=== PATIENT | male | born 1960 | race Caucasian/White ===

== ENCOUNTER 2023-10-01 19:57 | Emergency (ER) | payer OTHER, SELFPAY ==
[2023-10-01 20:00] VITALS: BP 172/97; BMI 24.4
[2023-10-01] MEDS: ZOFRAN 4 MG IV (20:16)
[2023-10-01] MEDS: ATIVAN 0.5 MG IV (20:16)
[2023-10-01] MEDS: DILAUDID 1 MG IV (20:16)
[2023-10-01 20:20] LABS: % Basophils 0.8 % (0-2); % Eosinophils 2.5 % (0-6); % Immature Granulocytes 0.4 % (0-0.5); % Lymphocytes 25.6 % (20.5-51.1); % Monocytes 8.4 % (1.7-9.3); % Neutrophils 62.3 % (42.2-75.2); Absolute Basophils 0.1 10^3/uL (0-0.2); Absolute Eosinophils 0.3 10^3/uL (0-0.7); Absolute Immature Granulocytes 0.1 10^3/uL (0-0.05); Absolute Neutrophils 7.2 10^3/uL (1.4-6.5); Hematocrit 44.8 % (39.0-52.0); Hemoglobin 15.9 g/dL (13.0-18.0); Mean Corp Hgb Conc. 35.5 g/dL (33.0-37.0); Mean Corpuscular Hgb 31.4 pg (27.0-31.0); Mean Corpuscular Volume 88.4 fL (80.0-94.0); Mean Platelet Volume 8.5 fL (7.4-10.4); Nucleated Red Blood Cells % 0 % (-); Platelet Count 331 10^3/uL (130-400); Red Blood Cell Count 5.07 10^6/uL (4.70-6.10); White Blood Cell Count 11.6 10^3/uL (4.8-10.8)
[2023-10-01 20:37] LABS: ALT (SGPT) 23 U/L (0-50); AST (SGOT) 29 U/L (17-59); Albumin 4.7 g/dl (3.5-5.0); Alkaline Phosphatase 114 U/L (38-126); Blood Urea Nitrogen 18 mg/dl (9-20); Calcium 9.4 mg/dl (8.4-10.2); Carbon Dioxide 25 mmol/L (22-30); Chloride 102 mmol/L (98-107); Estimated Creatinine Clearance > 125 ml/min; Glucose 157 mg/dl (70-99); Potassium 4.3 mmol/L (3.5-5.1); Sodium 135 mmol/L (135-145); Total Bilirubin 0.5 mg/dl (0.2-1.3); Total Protein 7.7 g/dl (6.3-8.2); eGFR > 60.00
[2023-10-01 20:38] LABS: Alcohol None Detected
[2023-10-01 21:17] VITALS: BP 140/87
[2023-10-01 22:00] VITALS: BP 127/82
[2023-10-01 22:28] VITALS: BP 145/92
[2023-10-01 23:00] VITALS: BP 121/88
[2023-10-02] VITALS (9 sets, daily range): BP systolic 128–151; BP diastolic 71–95
--- NOTE | 2023-10-02 01:18 | ED.GENMED ---
History of Present Illness
General
Chief Complaint: Musculo-Skeletal Complaint
Source: patient, spouse and family
Exam Limitations: none
Time Seen by Provider: 10/01/23 20:10
Nursing documentation reviewed up to this point in time: agreed with
Travel History
Have you had any contact with someone who has COVID-19?: No
Do you have any symptoms of coronavirus? Fever > 100 degrees, chills, cough, shortness of breath, sore throat, loss of taste or smell, muscle aches, or headache?: No
History of Present Illness
History of Present Illness:
Patient is a 63-year-old male who presents to the emergency department complaining of right sided chest pain with spasms that started tonight. Patient's been having pain ever since he fell 3 times a couple days ago. Patient denies shortness of
breath or abdominal pain. Patient denies any head injury. Patient denies any previous history of similar episodes. Patient was initially treated for pain as he appeared to be in significant distress. At that point his and brother arrived
and gave a history that the patient has been using methamphetamine. Patient does smoke marijuana daily. Patient's was unaware of the methamphetamine. Patient's brother was suspicious. Patient confessed to them while in the emergency
department. Patient denies fever or chills or GI symptoms. Patient denies any extremity pain or injury.
Past History
Past History
ED Past Medical History: NIDDM and Other (Restless leg syndrome)
Social History
Tobacco: Former smoker
Drug: Marijuana and Other (Methamphetamine)
Personal:
Review of Systems
Review of Systems
All Other Systems: ROS reviewed and negative except as documented in HPI and ROS
Constitutional: Denies fever or chills
EENT: Reports no symptoms
Respiratory: Denies trouble breathing
Cardiac: Reports chest pain (Spasms on the right); Denies diaphoresis, palpitations or syncope
ABD/GI: Reports no symptoms
: Reports no symptoms
Musculoskeletal: Reports other (Right rib pain); Denies neck pain or back pain
Skin: Reports no symptoms
Neurological: Reports no symptoms
Hematologic/Lymphatic: Reports no symptoms
Phy Exam
Physical Exam
Physical Exam:
Physical Exam
General: significant distress, alert and appropriate, well nourished, well hydrated
HENT: Normocephalic and atraumatic, supple with no tracheal deviation or contusion
Eyes: Clear sclera, conjuctiva without injection
Heart: Regular rhythm and rate. No S3, S4. No murmur. No NVD
Lungs: No respiratory distress, no stridor, lung sounds clear and equal bilaterally, chest wall symmetrical and tenderness in the right lateral mid to lower ribs without crepitus, deformity or subcutaneous emphysema
Abdomen: Soft, nontender, no organomegaly, BS good
Neuro: Alert and oriented x 3, CN II - XII intact, no motor focality
Skin: no wounds
Psychiatric: well kept. interactive and cooperative
Extremities: No edema, cyanosis, tenderness, Good and equal peripheral pulses.
Musculoskeletal: No cervical, thoracic or lumbar spine tenderness
Scores
Heart Failure Risk
Heart Failure Risk Score: Not Applicable
Heart Score for Chest Pain Patients
STEMI patient?: Not applicable
Withdrawal Assessment of Alcohol
Withdrawal Assessment Completed?: Not applicable
Course
Orders/Labs/Results
Orders:
Orders
10/01/23 20:10
Electrocardiogram (*1) Urgent
Reason for Study: Chest Pain
EKG- Treatment ONCE
Ribs, Right 3 View W/PA Chest [CR Ribs-right 3 Vw W/pa Chest*] Urgent
Comment:
Reason For Exam: fall pain right side
10/01/23 20:11
HYDROmorphone [Dilaudid] 1 mg IV NOW STA
Lorazepam [Ativan] 0.5 mg IV NOW STA
Ondansetron Injectable [Zofran] 4 mg IV NOW STA
10/01/23 20:13
Alcohol Urgent
Complete Blood Count/With Diff Urgent
Comprehensive Metabolic Panel Urgent
Abnormal Lab Results
10/01/23
20:13
WBC 11.6 H 10^3/uL
(4.8-10.8)
MCH 31.4 H pg
(27.0-31.0)
Abs Immat Gran (auto) 0.1 H 10^3/uL
(0-0.05)
Absolute Neuts (auto) 7.2 H 10^3/uL
(1.4-6.5)
Absolute Monos (auto) 1.0 H 10^3/uL
(0.1-0.6)
Creatinine 0.6 L mg/dL
(0.7-1.3)
Glucose 157 H mg/dl
(70-99)
10/01/23 20:13
10/01/23 20:13
Vital Signs
Initial and Last Documented VS:
Initial Vital Signs
Temp Pulse Resp BP Pulse Ox
98.1 F 98 20 172/97 94
10/01/23 20:00 10/01/23 20:00 10/01/23 20:00 10/01/23 20:00 10/01/23 20:00
Last Documented Vital Signs
Temp Pulse Resp BP Pulse Ox
98.1 F 94 18 139/95 94
10/01/23 20:00 10/02/23 08:00 10/02/23 08:00 10/02/23 08:00 10/02/23 00:15
*Radiology
Radiology exam reviewed: radiology read reviewed (Rib and chest are unremarkable)
*Pulse Oximetry
Patient hypoxic: no
*EKG
Interpreted by ED Provider?: Yes
EKG Intrepretation Date: 10/02/23
EKG Intrepretation Time: 01:22
Interpretation: normal
Comparison EKG: no changes
Heart Rate: 99
Rate: normal
Rhythm: sinus
[place]: normal axis
Interval: normal interval
QRS Pattern: normal QRS
Ischemia: no ischemia
*Trauma Program Manager Interpretation
Rate: normal
Interpretation: normal
Heart Rate: 95
Rhythm: sinus
*Critical Care Note
Total Time (30-74mins, 75-104mins- exclusive of procedures): Not Applicable
Update Note
Update Note:
Spoke extensively with the patient's and brother while the patient slept. Will keep the patient overnight and discuss his illicit drug use when he awakens with referral to [facility]. Patient's will pick him up in the morning if appropriate.
I spoke with [facility] and they will see the patient in the morning. Patient is sleeping at this time.
ED Attending Note
-
Portions of this chart may have been created with voice recognition software.� Occasional wrong word or��sound alike� substitutions may have occurred due to the inherent limitations of voice recognition software.
Discharge Plan
Departure
Patient Disposition: Home (Routine Discharge)
Date of Disposition: 10/02/23
Time of Disposition: 08:14
Patient with high blood pressure during this ER visit?: Yes
Condition: Fair
Covid-19: Not Applicable
Discharge Problem:
Chest wall contusion, Methamphetamine use
Instructions: Blunt Chest Trauma (DC), Substance Use Disorder ED, BLOOD PRESSURE
Prescriptions:
No Action
ibuprofen [Motrin IB] 200 MG capsule
400 mg PO Q6HPRN PRN (Reason: pain)
sertraline 50 MG tablet
100 mg PO QPM
lisinopril 2.5 MG tablet
2.5 mg PO QPM
pramipexole 1.5 MG tablet
1.5 mg PO BID
rosuvastatin 20 MG tablet
20 mg PO QPM
empagliflozin [Jardiance] 25 MG tablet
25 mg PO QPM
lorazepam [Ativan] 1 mg tablet
1 mg PO BID PRN (Reason: agitation) Qty: 10 0RF
gabapentin 300 mg capsule
300 mg PO HS Qty: 14 0RF
Referrals:
Cecilia Catalan MD [Family Provider] - Follow up in 5-7 days
Activity Restrictions/Additional Instructions:
Follow instructions by [facility]. Acetaminophen 1000 mg or ibuprofen 400 mg every 6 hours for pain. Make sure to do deep breathing a few times a day.
Interventions
Interventions:
*Risk Screen - Suicide Last Done: 10/01/23 20:00
*General Assessment Last Done: 10/01/23 20:00
*Neglect/Abuse Screening Last Done: 10/01/23 20:00
ED- Fall Risk Assessment Last Done: 10/01/23 20:07
*ED COVID-19 Vaccine History Last Done: 10/01/23 20:00
*Nursing Disposition Last Done: 10/02/23 09:12
ED-Musculoskeletal Assessment Last Done: 10/01/23 20:07
Discharge Date and Time
Discharge Date/Time: 10/02/23 09:14
== END 2023-10-02 09:14 | disposition home or self-care (01) ==
LOC: EMR 19:57
PROVIDERS: EMERGENCY PHYSICIAN Emergency Medicine; FAMILY PHYSICIAN Internal Medicine
DX: S20.219A Contusion of unspecified front wall of thorax, initial encounter (principal); W19.XXXA Unspecified fall, initial encounter; F15.90 Other stimulant use, unspecified, uncomplicated; Z87.891 Personal history of nicotine dependence; R03.0 Elevated blood-pressure reading, without diagnosis of hypertension
CPT/HCPCS: 99285; 96374; 96375 ×2; 71101; 80053; 82077; 85025; 93005

== ENCOUNTER 2024-09-11 08:13 | Inpatient (IN) | payer OTHER, SELFPAY ==
[2024-09-09] VITALS (8 sets, daily range): BP systolic 127–158; BP diastolic 65–84; BMI 29.2
--- NOTE | 2024-09-09 02:16 | ED.GENMED ---
History of Present Illness
General
Chief Complaint: Skin Problem
Source: patient
Exam Limitations: none
Time Seen by Provider: 09/09/24 02:08
Nursing documentation reviewed up to this point in time: agreed with
History of Present Illness
History of Present Illness:
Patient with history of diabetes, presents to ED secondary to painful left foot with swelling over the past 2 days. Patient states that he noted 'black dot' on the bottom of his foot, with pain initially. Denies previous history of similar
symptoms. Denies injury. Denies fever or chills. Denies nausea or vomiting. Of note, patient does report drinking alcohol daily, including last night.
Past History
Past History
ED Past Medical History: NIDDM and Other (Restless leg syndrome)
Social History
Tobacco: Former smoker
Drug: Marijuana and Other (Methamphetamine)
Personal:
Review of Systems
Review of Systems
Allergies reviewed?: Yes
All Other Systems: ROS reviewed and negative except as documented in HPI and ROS
Constitutional: Reports no symptoms; Denies fever or chills
Musculoskeletal: Reports other (Foot pain with swelling)
Skin: Reports other (Foot swelling)
Neurological: Reports no symptoms
Phy Exam
Physical Exam
Physical Exam:
Physical Exam
General: no apparent distress, not acutely ill. afebrile.
Head: nc/at. eomi
Neuro: alert and oriented x 3. no focal neurological deficits
Skin: left foot: an open linear lesion over plantar surface base of 4th/5th metatarsal, along with lateral ecchymosis/swelling/tenderness to palpation.
Psychiatric: well kept. interactive and cooperative
Extremities: no edema. no calf tenderness.
Course
Orders/Labs/Results
Orders:
Orders
09/09/24 02:14
CR Foot - Left Min 3 Views Urgent
Comment:
Reason For Exam: left lateral/plantar wound with swelling/ecchymosi
09/09/24 02:42
Piperacillin/Tazo 3.375 Gram [Zosyn] 3.375 gram in 50 ml IV NOW
09/09/24 02:48
Alcohol Urgent
Basic Metabolic Panel Urgent
Complete Blood Count/With Diff Urgent
Magnesium Urgent
09/09/24 03:23
Blood Culture Q30M
ABEBA Source: Blood/Venous
Specimen Description:
Wound Culture [Wound/Abscess/Other Culture] Urgent
ABEBA Source: Foot
Specimen Description: Left
Date Specimen was Collected: 09/09/24
Time Specimen was Collected: 03:20
09/09/24 03:37
Blood Culture Q30M
ABEBA Source: Blood/Venous
Specimen Description:
09/09/24 03:41
Admit/Transfer Patient As Directed
Co-Sign Provider:
Level of Care: Observation services
Assign to:: Medical/Surgical
Physician / Group: hospitalist
Diagnosis: left foot abscess/cellulitis
Code Status As Directed
Resuscitation Status: Full Code
PRN Pain Medication Management As Directed
May give lesser potent ordered pain med per pt: Yes
preference::
Protocol:: Medication orders for pain may be administered in a
manner that supports deferring to patient preference
when the pt is:
- Requesting an ordered lesser potent pain medication.
Least to most potent pain medications are defined
as: acetaminophen < NSAID < tramadol < opioids
(morphine, oxycodone, hydromorphone).
- Requesting a lesser dose of the same medication IF
ORDERED.
- Requesting a less intrusive route of administration
if both routes are prescribed by the provider (PO <
IV).
09/09/24 04:02
Vancomycin [Vancocin] 2,000 mg 0.9% Sodium Chloride 500 ml [Nss] 500 ml IV NOW
09/09/24 04:56
Acetaminophen [Tylenol] 650 mg PO Q4HPRN PRN
Bisacodyl [Dulcolax] 10 mg RECTAL [id number] PRN
Docusate W/Senna [Senokot-S] 1 tablet PO BIDPRN PRN
Ketorolac [Toradol] 10 mg IV Q6HPRN PRN
Ondansetron Injectable [Zofran] 4 mg IV Q6HPRN PRN
Polyethylene Glycol Powder [Miralax] 17 grams PO DAILYPRN PRN
09/09/24 04:56
Consult Notification Routine
Specialty to Notify: Infectious Disease
Date consulting provider notified: 09/09/24
Time consulting provider notified: 11:14
Notified:: Service
Consult Notification Routine
Specialty to Notify: Podiatry
Date consulting provider notified: 09/09/24
Time consulting provider notified: 09:00
Notified:: Service
INFECTIOUS DISEASE CONSULT Routine
Consulting Provider: Mel Umana
Was physician already notified: No
Reason for consult: diabetic foot abscess w/ foreign body and cellulitis
PODIATRY CONSULT Routine
Consulting Provider: Kristian Chowdhury
Was physician already notified: No
Reason for consult: diabetic foot infection/abscess/cellulitis. S/P removal foreign body
Activity As Directed
Activity Level: With Assistance
Bedside Glucose Monitoring As Directed
Frequency: AC&HS
Vital Signs As Directed
Frequency: Per unit guidelines
DX Deep Vein Thrombosis Video Routine
09/09/24 04:59
Basic Metabolic Panel IN AM
Complete Blood Count/No Diff IN AM
ESR [Erythrocyte Sed Rate] IN AM
Hemoglobin A1c [Glycohemoglobin (HgbA1c)] IN AM
09/09/24 Breakfast
1800 calorie (15 carb) Diabetic
At Your Request: Full Participation
Does patient need a safe tray?: No
09/09/24 07:30
Insulin Aspart Corrective Low [Novolog Flexpen-Low Resistance] See Protocol SC AC
09/09/24 08:00
Dapagliflozin [Farxiga] 5 mg PO DAILY
Pramipexole [Mirapex, Generic] 1.5 mg PO BID
09/09/24 09:00
Piperacillin/Tazo 3.375 Gram [Zosyn] 3.375 gram in 50 ml IV Q6H
09/09/24 18:00
Enoxaparin Sodium [Lovenox] 40 mg SC QPM
Abnormal Lab Results
09/09/24
02:48
WBC 14.6 H 10^3/uL
(4.8-10.8)
RBC 4.50 L 10^6/uL
(4.70-6.10)
MCH 31.1 H pg
(27.0-31.0)
Abs Immat Gran (auto) 0.1 H 10^3/uL
(0-0.05)
Absolute Neuts (auto) 11.6 H 10^3/uL
(1.4-6.5)
Absolute Monos (auto) 1.4 H 10^3/uL
(0.1-0.6)
Neutrophils % 79.3 H %
(42.2-75.2)
Lymphocytes % 9.7 L %
(20.5-51.1)
Monocytes % 9.5 H %
(1.7-9.3)
Creatinine 0.5 L mg/dL
(0.7-1.3)
Glucose 172 H mg/dl
(70-99)
09/09/24 02:48
09/09/24 02:48
Vital Signs
Initial and Last Documented VS:
Initial Vital Signs
Temp Pulse Resp BP Pulse Ox
98.2 F 99 18 127/80 98
09/09/24 00:32 09/09/24 00:32 09/09/24 00:32 09/09/24 00:32 09/09/24 00:32
Last Documented Vital Signs
Temp Pulse Resp BP Pulse Ox
98.2 F 84 18 154/65 98
09/09/24 00:32 09/09/24 08:00 09/09/24 08:00 09/09/24 14:00 09/09/24 14:00
Procedures
Foreign Body Removal-Skin
Wound explored and foreign body removed?: Yes
Anesthesia: 1%lidocaine w/epinephrine
Foreign body removed using: forceps
Foreign body removed: completely (Plantar surface of left foot)
MDM/Problems Addressed
MDM/Problems Addressed:
Foreign body removed with use of forceps, with soft drainage of pus. In light of patient's immunocompromise state along with cellulitic changes, patient will be admitted for IV antibiotics.
*Critical Care Note
Total Time (30-74mins, 75-104mins- exclusive of procedures): Not Applicable
ED Attending Note
-
Portions of this chart may have been created with voice recognition software.� Occasional wrong word or��sound alike� substitutions may have occurred due to the inherent limitations of voice recognition software.
Discharge Plan
Departure
Patient Disposition: Admit
Date of Disposition: 09/09/24
Time of Disposition: 03:11
Admit to: Med/Surg
Presentation/result/management discussed w/ accepting MD/DO: Hospitalist
Discharge Problem:
Cellulitis and abscess of foot, foreign body removal
Interventions
Interventions:
*Risk Screen - Suicide Last Done: 09/09/24 00:32
*Neglect/Abuse Screening Last Done: 09/09/24 00:32
ED- Fall Risk Assessment Last Done: 09/09/24 00:39
*ED COVID-19 Vaccine History Last Done: 09/09/24 00:39
*Nursing Disposition Last Done: 09/09/24 16:43
Discharge Date and Time
Discharge Date/Time: 09/09/24 16:43
[2024-09-09 02:59] LABS: % Basophils 0.3 % (0-2); % Eosinophils 0.7 % (0-6); % Immature Granulocytes 0.5 % (0-0.5); % Lymphocytes 9.7 % (20.5-51.1); % Monocytes 9.5 % (1.7-9.3); % Neutrophils 79.3 % (42.2-75.2); Absolute Basophils 0.1 10^3/uL (0-0.2); Absolute Eosinophils 0.1 10^3/uL (0-0.7); Absolute Immature Granulocytes 0.1 10^3/uL (0-0.05); Absolute Lymphocytes 1.4 10^3/uL (1.2-3.4); Absolute Monocytes 1.4 10^3/uL (0.1-0.6); Absolute Neutrophils 11.6 10^3/uL (1.4-6.5); Hematocrit 40.5 % (39.0-52.0); Mean Corp Hgb Conc. 34.6 g/dL (33.0-37.0); Mean Corpuscular Hgb 31.1 pg (27.0-31.0); Mean Platelet Volume 8.2 fL (7.4-10.4); Nucleated Red Blood Cells % 0 % (-); Platelet Count 270 10^3/uL (130-400); Red Cell Dist. Width 12.1 % (11.5-14.5); White Blood Cell Count 14.6 10^3/uL (4.8-10.8)
[2024-09-09] MEDS: ZOSYN 50 IV ×4 (03:01→20:17)
[2024-09-09 03:21] LABS: Blood Urea Nitrogen 16 mg/dl (9-20); Calcium 8.8 mg/dl (8.4-10.2); Carbon Dioxide 27 mmol/L (22-30); Chloride 102 mmol/L (98-107); Glucose 172 mg/dl (70-99); Sodium 138 mmol/L (135-145); eGFR > 60.00
[2024-09-09 03:24] LABS: Alcohol None Detected
--- NOTE | 2024-09-09 03:29 | HPS.HSE ---
Family Physician
-
Family Physician: * NONE
Chief Complaint
-
Left foot pain and swelling
History of Present Illness
Diseases 4-year-old male with past medical history of [id number]-wezjezano diabetes who presents to the emergency department with foot pain and swelling.
Patient unable to tell me exactly the onset of his symptoms. He states he has been soaking his feet for the last 2 days due to pain. Apparently today he had noted a black dot on the bottom of his left foot associated with the pain and wanted it
taken out. Denies previous history of similar symptoms. Denies injury. Denies fever or chills. Denies nausea or vomiting.
In the ED was afebrile, blood pressure was 127/80 and temperature was 98.2, he was satting 98% on room air. White count was 14,000 hemoglobin was normal blood counts normal. Electrolytes BUN/creatinine were all within normal range. X-ray of the
left foot appears to show foreign body. He had an incision and drainage with extraction of the brain foreign body. There was purulent drainage afterwards.
Medical History
Past Medical History
Past Medical History: Reports NIDDM and Other (restless leg syndrome)
Past Surgical History: Reports None
Social History
Tobacco: Former Smoker
Alcohol: Daily (maximum of 3 beers a night)
Drug: None
Personal: Single
Living: Alone
Employment: Not Employed
Family History
Family History: Not pertinent
Allergies / Home Medications
Allergies reflects when Allergies were last updated in [facility].
Home Medications with original date entered in [facility]
Allergy/Medication List:
Allergies
Allergy/AdvReac Type Severity Reaction Status Date / Time
No Known Allergies Allergy Unverified 09/09/24 00:32
Home Medications
empagliflozin 25 mg tablet (Jardiance) 25 mg PO QPM 10/01/19
ibuprofen 200 mg capsule (Motrin IB) 400 mg PO Q6HPRN PRN pain 10/01/19
lisinopril 2.5 mg tablet 2.5 mg PO QPM 10/01/19
pramipexole 1.5 mg tablet 1.5 mg PO BID 10/01/19
rosuvastatin 20 mg tablet 20 mg PO QPM 10/01/19
sertraline 50 mg tablet 100 mg PO QPM 10/01/19
gabapentin 300 mg capsule 300 mg PO HS #14 caps 11/07/22
lorazepam 1 mg tablet (Ativan) 1 mg PO BID PRN agitation #10 tabs 11/07/22
Review of Systems
-
History Source: Patient
Constitutional: Reports No Symptoms
EENT: Reports No Symptoms
Respiratory: Reports No Symptoms
Cardiac: Reports No Symptoms
Abdomen/GI: Reports No Symptoms
: Reports No Symptoms
Musculoskeletal: Reports No Symptoms
Skin: Reports No Symptoms and Other (foot pain)
Neurological: Reports No Symptoms
Endocrine: Reports No Symptoms
Hematologic/Lymphatic: Reports No Symptoms
Psych: Reports No Symptoms
Physical Exam
Vital Signs
Vital Signs
Temp Pulse Resp BP Pulse Ox
98.2 F 99 18 127/80 98
09/09/24 00:32 09/09/24 00:32 09/09/24 00:32 09/09/24 00:32 09/09/24 00:32
Physical Exam
General: Well Developed and Comfortable
HEENT: NormoCephalic, Anicteric, Moist mucous membranes, Good Dentition and PERRLA
Respiratory: Clear
Cardiac: S1/S2 and Regular Rhythm
Breast: Deferred by me
GI: Soft, Non Tender, Non Distended and Normal Bowel Sounds
Rectal: Deferred by Provider
Genito-urinary: Deferred by me
Musculoskeletal: No Clubbing, No Cyanosis and Edema, Left Lower Extremity (1 + edema to the ankles)
Skin: Warm and Other (left foot edema, erythema at the lateral aspect with some ecchymoses. Black dot at incision site callouses. )
Neuro: AO x 3 and Nonfocal/grossly intact
Hematologic/Lymphatic: No Lymphadenopathy
Psych: Calm
Laboratory Results
-
09/09/24 02:48
09/09/24 02:48
Data Reviewed
-
Diagnostic Radiology: Image Personally Visualized and interpreted
Lab Data: Labs Reviewed by me
Old Records: Reviewed
Impression/Plan
-
IMPRESSION:
64 y.o with NIDDM and restless legs presenting with foreign body associated foot abscess and cellulitis. He has leukocytosis but otherwise stable.
PLAN:
Skin infection - Diabetes with foreign body associated abscess and edema with tenderness of the left foot concerning for cellulitis. No recent hospitalizations, abx use. He has been soaking the foot regularly over th last 2 days.
- admit to med/surg obs
- coverage for mrsa/pseudomonas empirically with vanc/zosyn for now
- check mrsa swab, if negative, will only need pseudomonas coverage
- pain control
- ID and podiatry consults.
DM II - no on insulin at home
- check a1c
- sgltII inhibitor daily
- sensitive sliding scale for now
ETOH - endorses maximum of 3 beers a night but drinks regularly. No signs of withdrawal. Suspect fairly low risk
- no indication for msas
DVT PPX - lovenox sq
Code status - full code
[2024-09-09] MEDS: VANCOCIN 540 MG IV (04:22)
[2024-09-09 05:21] LABS: Hematocrit 37.4 % (39.0-52.0); Hemoglobin 12.9 g/dL (13.0-18.0); Mean Corp Hgb Conc. 34.5 g/dL (33.0-37.0); Mean Corpuscular Hgb 31.4 pg (27.0-31.0); Mean Platelet Volume 8.5 fL (7.4-10.4); Platelet Count 253 10^3/uL (130-400); Red Blood Cell Count 4.11 10^6/uL (4.70-6.10); White Blood Cell Count 14.6 10^3/uL (4.8-10.8)
[2024-09-09 05:37] LABS: Blood Urea Nitrogen 15 mg/dl (9-20); Calcium 8.4 mg/dl (8.4-10.2); Carbon Dioxide 26 mmol/L (22-30); Chloride 103 mmol/L (98-107); Glucose 184 mg/dl (70-99); Potassium 3.9 mmol/L (3.5-5.1); Sodium 136 mmol/L (135-145); eGFR > 60.00
[2024-09-09 07:33] LABS: Erythrocyte Sed Rate 15 mm/hour (0-20)
--- NOTE | 2024-09-09 08:37 | W.PN.HOSP.TC ---
Today's Communication/Plan
-
await ID and podiatry
cont zosyn/vanco if MRSA screen neg, stop vanco
add MSAS--no signs of WD but does drink daily--check urine tox screen
Assessment / Plan
Assessment / Plan
pt is a 64 yo male
need med rec
Skin infection -complicated by Diabetes with foreign body associated abscess and edema with tenderness of the left foot concerning for cellulitis-- No recent hospitalizations, abx use. He has been soaking the foot regularly over the last 2
days--agree with coverage for pseudomonas--cont vanco/zosyn for now--await podiatry/ID input
DM II - no on insulin at home --meds not confirmed--check HGB A1c --SSI coverage
ETOH--endorses maximum of 3 beers a night but drinks regularly--no signs of DTs--will order MSAS
DVT PPX - lovenox sq
Code status - full code
Anticipated Discharge: > 48 hours
Subjective/Interval History
-
Date of Service: September 09, 2024
pt sleeping, told me I woke him up
Objective Data
-
Labs:
Laboratory Results
09/09/24 09/09/24
02:48 04:59
WBC 14.6 H 14.6 H
Hgb 14.0 12.9 L
Hct 40.5 37.4 L
Plt Count 270 253
Sodium 138 136
Potassium 4.0 3.9
Chloride 102 103
Carbon Dioxide 27 26
BUN 16 15
Creatinine 0.5 L 0.5 L
Glucose 172 H 184 H
Calcium 8.8 8.4
Vital Signs:
max temp for 24 hours
09/09/24
00:32
Temp 98.2 F
Vital Signs
Temp Pulse Resp BP Pulse Ox
98.2 F 99 18 132/84 94
09/09/24 00:32 09/09/24 00:32 09/09/24 00:32 09/09/24 03:00 09/09/24 03:30
Review of Systems
-
All other systems: Reviewed and negative
Physical Exam
-
General: Well Developed, Well Nourished and No Apparent Distress
HEENT: Normocephalic and Atraumatic; Negative Oxygen
Respiratory: Clear to Auscultation; Negative Wheezes or Rhonchi
Cardiac: Regular Rhythm and S1/S2; Negative Murmur
GI: Soft, Nontender, Nondistended and Normal Bowel Sounds
Musculoskeletal: No Clubbing, No Cyanosis, No Edema and Other (left foot with bandaid in place--removed--has what appears to be a puncture wound with tenderness to touch around that--no obvious drainage noted)
Psych: Calm (no signs of DTs)
[2024-09-09 08:57] LABS: Glycohemoglobin (HgbA1c) 7.2 % (4.0-5.6)
[2024-09-09 09:23] LABS: GGTP 12 U/L (15-73); Phosphorus 3.3 mg/dl (2.5-4.5)
[2024-09-09 09:25] LABS: INR 1.05; PT 14.1 Sec (11.4-14.6)
[2024-09-09 09:25] LABS: Glucose - Point of Care 146 mg/dl (70-99)
[2024-09-09] MEDS: FOLVITE 1 MG PO (09:25)
[2024-09-09] MEDS: VITAMIN B1 100 MG PO (09:25)
[2024-09-09 09:26] LABS: APTT 30.4 Sec (23.4-35.0)
[2024-09-09 09:32] LABS: B-Hydroxybutyrate 0.11 mmol/L (0.02-0.27)
[2024-09-09] MEDS: NOVOLOG FLEXPEN-LOW RESISTANCE SC ×3 (10:23→17:12)
[2024-09-09] MEDS: MIRAPEX, GENERIC 1.5 MG PO ×2 (10:58→21:26)
[2024-09-09] MEDS: FARXIGA 5 MG PO (10:59)
[2024-09-09 11:16] LABS: Urine Albumin Trace (Neg - Trace); Urine Bilirubin Negative (Negative); Urine Character Very Cloudy (Clear); Urine Color Yellow; Urine Glucose Trace (Negative); Urine Ketone Negative (Negative); Urine Leukocyte 2+ (Negative); Urine Nitrite Positive (Negative); Urine Occult Blood 2+ (Negative); Urine Specific Gravity 1.015 (<1.030); Urine Urobilinogen Negative (Neg - 1+); Urine pH 6.5 (5.0-9.0)
[2024-09-09 11:25] LABS: Urine Squamous Cell 0-2 /LPF (Few)
[2024-09-09 11:26] LABS: Urine Amorphous Seen; Urine Bacteria Many (Negative)
--- NOTE | 2024-09-09 11:26 | PHA.VAN.IN ---
Assessment
- Assessment
Renal Function: Appears similar to baseline
Concomitant Antimicrobials: piperacillin/tazo
AUC Dosing Plan
- Dosing Variables
Dosing Weight (kg): 87
Dosing CrCl (ml/min): 100
Vd coefficient (L/kg): 0.7
- Empiric Dosing
Initial / Loading Dose: 2000 mg - given 09/09 421
Maintenance Regimen: 1250 mg q12h - to start 1800
Estimated AUC (mcg*h/mL): 501
Estimated Peak (mcg*h/mL): 31.6
Estimated Trough (mcg/ml): 12.6
Estimated Half Life (H): 7.9
- Monitoring
No levels ordered at this time: consider levels as pt nears steady state
Pharmacokinetics Vancomycin I
- -
Patient Age: 64
Patient Sex: Male
Vancomycin Day #: 1
Indication: Skin And Soft Tissue
Requesting Provider: Guy
Height / Weight:
Height 5 ft 8 in
Actual Weight 87.2 kg
Pertinent Past Medical History: NIDDM
- Vital Signs / Lab Results
Temp Pulse Resp BP Pulse Ox
98.2 F 84 18 156/84 98
09/09/24 00:32 09/09/24 08:00 09/09/24 08:00 09/09/24 08:00 09/09/24 08:00
Lab Results - Hematology
09/09/24 09/09/24
02:48 04:59
WBC 14.6 H 14.6 H
Lab Results - Chemistry
09/09/24 09/09/24
02:48 04:59
BUN 16 15
Creatinine 0.5 L 0.5 L
Lab Results - Urine
09/09/24
11:01
Urine Nitrite Positive A
Ur Leukocyte Esterase 2+ A
[2024-09-09 11:27] LABS: Urine Mucus Few; Urine White Cell 50-60 /HPF (0-5)
[2024-09-09 13:21] LABS: Amphetamines Positive (Negative); Barbiturates Negative (Negative); Benzodiazepines Negative (Negative); Buprenorphine Negative (Negative); Cocaine Negative (Negative); Marijuana Positive (Negative); Methadone Negative (Negative); Methamphetamines Positive (Negative); Opiates Negative (Negative); Phencyclidine Negative (Negative); Tricyclic Antidepressants Negative (Negative)
[2024-09-09 13:41] LABS: Fentanyl, Urine Negative (Negative)
--- NOTE | 2024-09-09 14:13 | CON.ID ---
Consultation
-
Date/Time Consultation Requested: 09/09/24 4:56
Date/Time Consultation Performed: 09/09/24 14:13
Requesting Provider: Dr Tovar
Performing Provider: Dr Umana
Reason for Consultation: diabetic foot abscess w/ foreign body and cellulitis
Chief Complaint / Past History
Chief Complaint
Left foot pain and swelling
History of Present Illness
Mr Velez is a 64 year old male with history of DM2 who presented here for foot pain and swelling; unclear exact onset but worse over the last two days. No fevers or chills. Had noted a 'black dot' on the bottom of the foot. Has been soaking his
foot over the last two days.
Since arrival here he has been afebrile, bp stable, wbc count 14.6 initially and also 14.6 today, hgb 12.9, plt 253, L shift is noted, esr 15, cr 0.5, a1c 7.2, ua 50-60 wbc/hpf and many bacteria, UDS + for amphetamines/methamphetamines, THC, foot
xray: small raiopaque foreign body lateral to the 5th metatarsophalangeal joint no evidence of osteomyelitis, blood cultures x2 in progress, wound culture few gps and rare gnr, had rmoval of foreign body with forceps with purulent drainage
afterwards,
Past History
Additional Past Medical History:
RLS
Additional Past Surgical History:
none
Allergy History:
No Known Allergies Allergy (Unverified 09/09/24 00:32)
Medications Reviewed: Yes
Social History
Tobacco: Former Smoker
Alcohol: Daily
Drug: None (none reported however with positive UDS)
Family History
Family History: Not Pertinent
Review of Systems
Review of Systems
General: Negative Fever or Chills
All systems: All other systems were reviewed and were negative
Vital Signs
Temp Pulse Resp BP Pulse Ox
98.2 F 84 18 154/65 98
09/09/24 00:32 09/09/24 08:00 09/09/24 08:00 09/09/24 14:00 09/09/24 14:00
Physical Exam
Physical Exam
Constitutional: No Acute Distress
Cardiovascular: Regular Rate and S1/S2; Negative Murmur or Rub
Pulmonary: Clear and Symmetric; Negative Wheezes, Rales or Rhonchi
Gastrointestinal: Soft, Non Tender, Non Distended and Normal Bowel Sounds
Skin: Warm and Dry; Negative Rash or Jaundice
Lab / Diagnostic Study Results
09/09/24 04:59
09/09/24 04:59
Abs Immat Gran (auto) 0.1 10^3/uL (0-0.05) H 09/09/24 02:48
Absolute Neuts (auto) 11.6 10^3/uL (1.4-6.5) H 09/09/24 02:48
Absolute Lymphs (auto) 1.4 10^3/uL (1.2-3.4) 09/09/24 02:48
Absolute Monos (auto) 1.4 10^3/uL (0.1-0.6) H 09/09/24 02:48
Absolute Basos (auto) 0.1 10^3/uL (0-0.2) 09/09/24 02:48
Immature Gran % 0.5 % (0-0.5) 09/09/24 02:48
Neutrophils % 79.3 % (42.2-75.2) H 09/09/24 02:48
Lymphocytes % 9.7 % (20.5-51.1) L 09/09/24 02:48
Monocytes % 9.5 % (1.7-9.3) H 09/09/24 02:48
Eosinophils % 0.7 % (0-6) 09/09/24 02:48
Basophils % 0.3 % (0-2) 09/09/24 02:48
ESR 15 mm/hour (0-20) 09/09/24 04:59
PT 14.1 Sec (11.4-14.6) 09/09/24 08:57
INR 1.05 09/09/24 08:57
Urine WBC 50-60 /HPF (0-5) A 09/09/24 11:01
Ur Squamous Epith Cells 0-2 /LPF (Few) 09/09/24 11:01
Microbiology Results
Micro:
09/09/24 03:23 Wound Culture - Pending
Foot - Left Gram Stain - Preliminary
09/09/24 03:23 Blood Culture - Pending
Blood/Venous
09/09/24 03:37 Blood Culture - Pending
Blood/Venous
Assessment / Plan
Diabetic Foot Infection
DM2 with fair control
Polysubstance abuse
- wound culture in progress
- blood cultures x2 in progress
- agree with MRI
- given recent I&D and soaking foot agree with vanc and zosyn; plan eventual transition to orals when cultures resulted
--- NOTE | 2024-09-09 14:50 | CM ---
CM reviewed medical records. CM met with patient in room. CM discussed drug and alcohol resources. Patient stated that he had a line of meth and 6 'pot cookies' because he was in an argument with his family members. Patient stated that he does not
have a problem and this one a 'one time thing'. CM advised patient that CM would be available if he should change his mind.
CM confirmed demographics. Patient lives alone. Patient does not have a PCP. Patient would prefer [facility] pharmacy for medication services.
CM will continue to follow for antibiotic needs.
PLAN: home
[2024-09-09] MEDS: THIAMINE INJECTION 200 MG IV ×2 (15:44→23:46)
--- NOTE | 2024-09-09 16:07 | CON.SURG ---
Surgical Consultation
-
Chief Complaint / Past History
Chief Complaint
Left foot pain and swelling
History of Present Illness
Mr Velez is a 64 year old male with history of DM2 who presented to [facility] for left foot pain and swelling; unclear exact onset but worse over the last two days. No fevers or chills. Had noted a 'black dot' on the bottom of the foot.
Has been soaking his foot over the last two days. Does not recall stepping on any foreign bodies. 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 Drinks several alcoholic beverages per day.
Since arrival here he has been afebrile, bp stable, wbc count 14.6 initially and also 14.6 today, hgb 12.9, plt 253, L shift is noted, esr 15, cr 0.5, a1c 7.2, ua 50-60 wbc/hpf and many bacteria, UDS + for amphetamines/methamphetamines, THC, foot
xray: small raiopaque foreign body lateral to the 5th metatarsophalangeal joint no evidence of osteomyelitis, blood cultures x2 in progress, wound culture few gps and rare gnr, had removal of foreign body with forceps with purulent drainage
afterwards,
Past History
Additional Past Medical History:
RLS
Additional Past Surgical History:
none
Allergy History:
No Known Allergies Allergy (Unverified 09/09/24 00:32)
Medications Reviewed: Yes
Social History
Tobacco: Former Smoker
Alcohol: Daily
Drug: None (none reported however with positive UDS)
Family History
Family History: Not Pertinent
Review of Systems
Review of Systems
General: Negative Fever or Chills
All systems: All other systems were reviewed and were negative
Vital Signs
Temp Pulse Resp BP Pulse Ox
98.2 F 84 18 154/65 98
09/09/24 00:32 09/09/24 08:00 09/09/24 08:00 09/09/24 14:00 09/09/24 14:00
Physical Exam
Physical Exam
Constitutional: No Acute Distress
Cardiovascular: Regular Rate and S1/S2; Negative Murmur or Rub
Pulmonary: Clear and Symmetric; Negative Wheezes, Rales or Rhonchi
Gastrointestinal: Soft, Non Tender, Non Distended and Normal Bowel Sounds
Skin: Warm and Dry; Negative Rash or Jaundice
LLE Focus Exam
-DP/PT pulses 2/4, capillary refill < 3 seconds
-Toes pink and well perfused without any signs of ischemia
-Left sub MT5 puncture with lateral 5th MTPJ erythema and fluctuance. No palpable crepitus or proximal streaking
-No pita purulence observed
Lab / Diagnostic Study Results
09/09/24 04:59
09/09/24 04:59
Abs Immat Gran (auto) 0.1 10^3/uL (0-0.05) H 09/09/24 02:48
Absolute Neuts (auto) 11.6 10^3/uL (1.4-6.5) H 09/09/24 02:48
Absolute Lymphs (auto) 1.4 10^3/uL (1.2-3.4) 09/09/24 02:48
Absolute Monos (auto) 1.4 10^3/uL (0.1-0.6) H 09/09/24 02:48
Absolute Basos (auto) 0.1 10^3/uL (0-0.2) 09/09/24 02:48
Immature Gran % 0.5 % (0-0.5) 09/09/24 02:48
Neutrophils % 79.3 % (42.2-75.2) H 09/09/24 02:48
Lymphocytes % 9.7 % (20.5-51.1) L 09/09/24 02:48
Monocytes % 9.5 % (1.7-9.3) H 09/09/24 02:48
Eosinophils % 0.7 % (0-6) 09/09/24 02:48
Basophils % 0.3 % (0-2) 09/09/24 02:48
ESR 15 mm/hour (0-20) 09/09/24 04:59
PT 14.1 Sec (11.4-14.6) 09/09/24 08:57
INR 1.05 09/09/24 08:57
Urine WBC 50-60 /HPF (0-5) A 09/09/24 11:01
Ur Squamous Epith Cells 0-2 /LPF (Few) 09/09/24 11:01
Microbiology Results
Micro:
09/09/24 03:23 Wound Culture - Pending
Foot - Left Gram Stain - Preliminary
09/09/24 03:23 Blood Culture - Pending
Blood/Venous
09/09/24 03:37 Blood Culture - Pending
Blood/Venous
Assessment / Plan
Patient is 64 year old M with history of DM2 and substance abuse presenting to with L foot infection and foreign body
-Patient seen and evaluated at bedside
-Foreign body reportedly removed by ED with subsequent purulent drainage
-Lateral foot concerning for abscess given history and physical exam
-Recommend L foot MRI to evaluate for deep infection
-Agree with broad spectrum antibiotics, appreciate ID recs
-Tentatively plan for I&D on Monday 09/11 pending MRI findings
-Will continue to follow-:
[2024-09-09 17:14] LABS: Glucose - Point of Care 112 mg/dl (70-99)
[2024-09-09] MEDS: VANCOCIN 275 MG IV (20:17)
[2024-09-09] MEDS: LOVENOX 40 MG SC (20:17)
[2024-09-09 21:41] LABS: Glucose - Point of Care 127 mg/dl (70-99)
[2024-09-10] MEDS: ZOSYN 50 IV ×4 (03:49→20:09)
[2024-09-10] MEDS: VANCOCIN 275 MG IV ×2 (06:33→17:37)
[2024-09-10 06:38] LABS: Hematocrit 42.1 % (39.0-52.0); Hemoglobin 14.5 g/dL (13.0-18.0); Mean Corp Hgb Conc. 34.4 g/dL (33.0-37.0); Mean Corpuscular Hgb 31.2 pg (27.0-31.0); Mean Corpuscular Volume 90.5 fL (80.0-94.0); Mean Platelet Volume 8.5 fL (7.4-10.4); Platelet Count 288 10^3/uL (130-400); Red Blood Cell Count 4.65 10^6/uL (4.70-6.10); Red Cell Dist. Width 11.9 % (11.5-14.5); White Blood Cell Count 9.9 10^3/uL (4.8-10.8)
[2024-09-10 07:10] LABS: ALT (SGPT) 18 U/L (0-50); AST (SGOT) 18 U/L (17-59); Albumin 3.6 g/dl (3.5-5.0); Alkaline Phosphatase 88 U/L (38-126); Blood Urea Nitrogen 9 mg/dl (9-20); Calcium 8.7 mg/dl (8.4-10.2); Carbon Dioxide 26 mmol/L (22-30); Chloride 102 mmol/L (98-107); Estimated Creatinine Clearance 124 ml/min; Glucose 103 mg/dl (70-99); Potassium 3.5 mmol/L (3.5-5.1); Sodium 137 mmol/L (135-145); eGFR > 60.00
[2024-09-10 07:14] VITALS: BP 166/86
[2024-09-10 07:32] LABS: Glucose - Point of Care 114 mg/dl (70-99)
--- NOTE | 2024-09-10 09:05 | W.PN.HOSP.TC ---
Today's Communication/Plan
-
need MRI
need med rec
cont abx
Assessment / Plan
Assessment / Plan
pt is a 64 yo male
still need med rec
Skin infection -complicated by Diabetes with foreign body associated abscess and edema with tenderness of the left foot concerning for cellulitis-- No recent hospitalizations, abx use. He has been soaking the foot regularly over the last 2 days
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
DM II - no on insulin at home --meds not confirmed--HGB A1c 7.2 --SSI coverage
ETOH--endorses 3 beers a night, told RN that he drinks coke and margo but only 2 drinks/day.... but drinks regularly--no signs of DTs--will order MSAS--also positive tox screen for marijuana/meth/amphetamines--pt not concerned--told CM 09/09 that he
doesn't have a problem
DVT PPX - lovenox sq
Code status - full code
Anticipated Discharge: > 48 hours
Subjective/Interval History
-
Date of Service: September 10, 2024
pt not concerned about his positive drug screen--says he smokes marijuana because he has a card nad when asked about the positive meth screen he says 'shouldn't be a lot'
Objective Data
-
Labs:
Laboratory Results
09/10/24
05:59
WBC 9.9
Hgb 14.5
Hct 42.1
Plt Count 288
Sodium 137
Potassium 3.5
Chloride 102
Carbon Dioxide 26
BUN 9
Creatinine 0.5 L
Glucose 103 H
Calcium 8.7
Total Bilirubin 1.0
AST 18
ALT 18
Alkaline Phosphatase 88
Vital Signs:
max temp for 24 hours
09/09/24
17:12
Temp 98.9 F
Vital Signs
Temp Pulse Resp BP Pulse Ox
98.1 F 90 18 166/86 97
09/10/24 07:14 09/10/24 07:14 09/10/24 07:14 09/10/24 07:14 09/10/24 07:14
I&O
09/09/24 09/10/24 09/11/24
06:59 06:59 06:59
Intake Total 375 / 375
Output Total 1100 / 1100
Balance -725 / -725
Review of Systems
-
All other systems: Reviewed and negative
Physical Exam
-
General: Well Developed, Well Nourished and No Apparent Distress
HEENT: Normocephalic and Atraumatic
Respiratory: Clear to Auscultation; Negative Wheezes or Rhonchi
Cardiac: Regular Rhythm, S1/S2, Murmur and Tachycardic
GI: Soft, Nontender, Nondistended and Normal Bowel Sounds
Musculoskeletal: No Clubbing, No Cyanosis and No Edema
Neuro: Awake
Psych: Calm
--- NOTE | 2024-09-10 09:48 | PHA.VAN.FU ---
Vancomycin Assessment / Plan
- Assessment
Renal Function: Stable
WBC's are: Trending Down
In the past 24 hrs, patient has been: Afebrile
Concomitant Antimicrobials: pip/tazo
- Dosing Plan
Continue: vancomycin 1250 mg q12h - first dose 09/09 1800
- Monitoring Plan
No level(s) ordered at this time: consider levels after 1800 dose Wednesday
Monitoring Comments: possible OR tomorrow based on MRI results
- Follow Up
Pharmacy will continue to follow.
Vancomycin Follow UP
- -
Patient Age: 64
Patient Sex: Male
Vancomycin Day #: 2
Indication: Skin And Soft Tissue
Requesting Provider: Guy
Height / Weight:
Height 5 ft 8 in
Actual Weight 87.175 kg
Pertinent Past Medical History: NIDDM
- Vital Signs / Lab Results
Temp Pulse Resp BP Pulse Ox
98.1 F 90 18 166/86 97
09/10/24 07:14 09/10/24 07:14 09/10/24 07:14 09/10/24 07:14 09/10/24 07:14
Lab Results - Hematology
09/09/24 09/09/24 09/10/24
02:48 04:59 05:59
WBC 14.6 H 14.6 H 9.9
Lab Results - Chemistry
09/09/24 09/09/24 09/10/24
02:48 04:59 05:59
BUN 16 15 9
Creatinine 0.5 L 0.5 L 0.5 L
Estimated Creat Clear 124
Albumin 3.6
Lab Results - Urine
09/09/24
11:01
Urine Nitrite Positive A
Ur Leukocyte Esterase 2+ A
Urine WBC 50-60 A
Ur Squamous Epith Cells 0-2
Urine Bacteria Many A
Microbiology Results
09/09/24 03:23 Wound Culture - Preliminary
Foot - Left Gram negative bacilli
Gram Stain - Preliminary
09/09/24 03:37 Blood Culture - Preliminary
Blood/Venous No Growth in 24 hours- Final report to follow
09/09/24 03:23 Blood Culture - Preliminary
Blood/Venous No Growth in 24 hours- Final report to follow
[2024-09-10] MEDS: NOVOLOG FLEXPEN-LOW RESISTANCE SC (09:55)
[2024-09-10] MEDS: FARXIGA 5 MG PO (09:57)
[2024-09-10] MEDS: FOLVITE 1 MG PO (09:57)
[2024-09-10] MEDS: MIRAPEX, GENERIC 1.5 MG PO ×2 (09:57→20:08)
[2024-09-10] MEDS: THIAMINE INJECTION 200 MG IV ×3 (09:58→23:29)
[2024-09-10 12:50] LABS: Glucose - Point of Care 177 mg/dl (70-99)
[2024-09-10] MEDS: NOVOLOG FLEXPEN-LOW RESISTANCE 1 UNITS SC (14:27)
[2024-09-10 16:39] VITALS: BP 170/83
[2024-09-10 16:56] LABS: Glucose - Point of Care 263 mg/dl (70-99)
[2024-09-10] MEDS: LOVENOX 40 MG SC (17:37)
[2024-09-10] MEDS: NOVOLOG FLEXPEN-LOW RESISTANCE 3 UNITS SC (17:38)
[2024-09-10] MEDS: TYLENOL 650 MG PO (17:47)
[2024-09-10 21:23] LABS: Glucose - Point of Care 138 mg/dl (70-99)
[2024-09-10 23:00] VITALS: BP 156/78
[2024-09-11] VITALS (15 sets, daily range): BP systolic 98–156; BP diastolic 66–97
[2024-09-11] MEDS: ZOSYN 50 IV ×2 (03:49→08:21)
[2024-09-11 06:05] LABS: Glucose - Point of Care 168 mg/dl (70-99)
[2024-09-11] MEDS: VANCOCIN 275 MG IV (06:26)
[2024-09-11] MEDS: NOVOLOG FLEXPEN-LOW RESISTANCE 1 UNITS SC (06:30)
[2024-09-11 07:32] LABS: Hematocrit 39.7 % (39.0-52.0); Hemoglobin 13.5 g/dL (13.0-18.0); Mean Corpuscular Hgb 31.2 pg (27.0-31.0); Mean Corpuscular Volume 91.7 fL (80.0-94.0); Mean Platelet Volume 8.4 fL (7.4-10.4); Platelet Count 299 10^3/uL (130-400); Red Blood Cell Count 4.33 10^6/uL (4.70-6.10); Red Cell Dist. Width 11.9 % (11.5-14.5); White Blood Cell Count 11.1 10^3/uL (4.8-10.8)
[2024-09-11 08:12] LABS: Blood Urea Nitrogen 13 mg/dl (9-20); Calcium 8.9 mg/dl (8.4-10.2); Carbon Dioxide 28 mmol/L (22-30); Chloride 101 mmol/L (98-107); Estimated Creatinine Clearance 124 ml/min; Glucose 139 mg/dl (70-99); Magnesium 2.2 mg/dl (1.6-2.3); Potassium 4.1 mmol/L (3.5-5.1); Sodium 136 mmol/L (135-145); eGFR > 60.00
[2024-09-11] MEDS: FARXIGA 5 MG PO (08:23)
[2024-09-11] MEDS: MIRAPEX, GENERIC 1.5 MG PO ×2 (08:23→20:02)
[2024-09-11] MEDS: FOLVITE 1 MG PO (08:23)
[2024-09-11] MEDS: THIAMINE INJECTION 200 MG IV ×2 (08:24→17:10)
--- NOTE | 2024-09-11 09:28 | W.PN.HOSP.TC ---
Addendum entered and electronically signed by Linsey Cazares MD 09/11/24 17:27:
I saw and evaluated the patient independently. reviewed the resident�s note and agree with findings and plan as documented by Dr. Gill.
GENERAL: well developed, well nourished, male in no apparent distress--seen in PACU post op
HEENT: NC/AT
HEART: regular rate and rhythm, +S1, +S2, CAMRON
LUNGS : clear to auscultation bilaterally
ABDOM: soft, nontender, nondistended, + bowel sounds
EXT: no cyanosis, clubbing, or edema--left foot post op with wrap in place
NEUROLOGIC: grossly intact
superficial foot abscess complicated by Diabetes with foreign body also concerning for cellulitis-- No recent hospitalizations, abx use. 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
screen neg--can stop vanco-- cont zosyn--apprec podiatry/ID--MRI of foot small superficial abscess--s/p OR today 09/11/24
Type 2 DM - no on insulin at home--HGB A1c 7.2 --SSI coverage
ETOH use disorder--endorses 3 beers a night, told RN that he drinks coke and margo but only 2 drinks/day.... but drinks regularly--no signs of DTs--cont MSAS--also positive tox screen for marijuana/meth/amphetamines--pt not concerned--told CM 09/09
that he doesn't have a problem
DVT PPX - lovenox sq
Code status - full code
will need VN and PCP
Original Note:
Today's Communication/Plan
-
Exploration of the wound, abscess drainage
Echo
Assessment / Plan
Assessment / Plan
64-year-old male, with past medical history of DM 2, restless leg syndrome, was seen in the ER for left foot pain and swelling since 2 days. Patient reports that he had stepped on broken glass pieces. He was afebrile at presentation, in
ER�[id number]. Left foot x-ray showed evidence of foreign body. In ER�foreign body was removed with drainage of pus thereafter. ID and podiatry consulted.
Impression
Cellulitis/abscess left foot
DM type II
Alcohol use disorder
Substance abuse disorder
Restless leg syndrome
Plan
Cellulitis/abscess left foot
-History of diabetes�not currently on home meds
-Continue antibiotics: Vancomycin and Zosyn
-MRI left foot- No MR evidence for osteomyelitis.
Within the superficial subcutaneous soft tissues lateral to the fifth metatarsophalangeal joint, crescentic thin fluid collection, which could represent seroma given recent surgery. This could also represent a small superficial collection/abscess.
Intermediate T1-weighted signal plantar to the fifth metatarsal head and proximal phalanx, with no evidence for associated collection.
�Podiatry consulted�plan on exploration of the wound, abscess drainage.
�Pain adequately controlled with Tylenol and tramadol as needed.
DM type II
HbA1c 7.2
Patient not on home meds
Continue SSI
Continue dapagliflozin 5 mg once daily
Alcohol use disorder
Patient reports that he drinks regularly
No evidence of withdrawal symptoms
Msas score-1
Continue folate
Continue thiamine
Substance abuse disorder
Urine toxicology�positive for marijuana, meth, amphetamines
Restless leg syndrome
Continue pramipexole
DVT PPX - lovenox sc
Full code
Anticipated Discharge: 24 - 48 hours
Subjective/Interval History
-
Date of Service: September 11, 2024
left foot pain adequately controlled with tylenol. swelling reduced.
Patient is n.p.o. no fevers/chills overnight.
Objective Data
-
Labs:
Laboratory Results
09/11/24
07:02
WBC 11.1 H
Hgb 13.5
Hct 39.7
Plt Count 299
Sodium 136
Potassium 4.1
Chloride 101
Carbon Dioxide 28
BUN 13
Creatinine 0.6 L
Glucose 139 H
Calcium 8.9
Vital Signs:
Vital Signs
Temp Pulse Resp BP Pulse Ox
98.1 F 79 17 156/97 100
09/11/24 07:38 09/11/24 07:38 09/11/24 07:38 09/11/24 07:38 09/11/24 07:38
I&O
09/10/24 09/11/24 09/12/24
06:59 06:59 06:59
Intake Total 375 / 375 805 / 805
Output Total 1100 / 1100 3675 / 3675
Balance -725 / -725 -2870 / -2870
Review of Systems
-
All other systems: Reviewed and negative (As per HPI)
Physical Exam
-
General: Well Developed, Well Nourished and No Apparent Distress
HEENT: Normocephalic and Atraumatic
Respiratory: Clear to Auscultation
Cardiac: Regular Rhythm and S1/S2
GI: Soft, Nontender, Nondistended and Normal Bowel Sounds
Musculoskeletal: Edema, Left Lower Extrem (Neurovasculature intact, capillary refill normal. Small indurated puncture wound on the plantar aspect near the fifth MTP joint. No drainage. Erythema and swelling noted.)
Skin: Warm and Dry
Neuro: Awake, Alert, Oriented and AO x 3
Psych: Calm and Anxious
[2024-09-11 12:03] LABS: Glucose - Point of Care 107 mg/dl (70-99)
[2024-09-11] MEDS: NOVOLOG FLEXPEN-LOW RESISTANCE SC ×2 (12:15→16:31)
--- NOTE | 2024-09-11 12:46 | W.PN.ID1 ---
Date of Service
Date of Service: September 11, 2024
Today's Communication
- possible I&D today
- start unasyn pending I&D, likely transition to augmentin tomorrow - duration pending OR findings
Assessment / Plan
Diabetic Foot Infection
DM2 with fair control
Polysubstance abuse
- wound culture in progress
- blood cultures x2 in progress
- possible I&D today
- start unasyn pending I&D, likely transition to augmentin tomorrow - duration pending OR findings
Chief Complaint
-: Other (diabetic foot infection)
Subjective / Review of Systems
afebrile
bp stable
wound cx: rfew K oxytoca and few mixed skin alondra
Vital Signs / Physical Exam
Vital Signs
Vital Signs
Temp Pulse Resp BP Pulse Ox
98.1 F 79 17 156/97 100
09/11/24 07:38 09/11/24 07:38 09/11/24 07:38 09/11/24 07:38 09/11/24 07:38
Physical Exam
Constitutional: No Acute Distress
Cardiovascular: Regular Rate and S1/S2; Negative Murmur or Rub
Pulmonary: Clear and Symmetric; Negative Wheezes or Rales
Gastrointestinal: Soft, Non Tender, Non Distended and Normal Bowel Sounds
Skin: Warm and Dry; Negative Rash or Jaundice
Wound: Other (plantar wound: no erythema, warmth or swelling; dorsal foot - fluctuant purulent appearing lesion on the dorsal foot)
Objective Data
Lab Data
Lab Results
09/11/24 07:02
09/11/24 07:02
ESR 15 mm/hour (0-20) 09/09/24 04:59
PT 14.1 Sec (11.4-14.6) 09/09/24 08:57
INR 1.05 09/09/24 08:57
APTT 30.4 Sec (23.4-35.0) 09/09/24 08:57
Estimated Creat Clear 124 ml/min 09/11/24 07:02
Total Bilirubin 1.0 mg/dl (0.2-1.3) 09/10/24 05:59
GGT 12 U/L (15-73) L 09/09/24 08:57
AST 18 U/L (17-59) 09/10/24 05:59
ALT 18 U/L (0-50) 09/10/24 05:59
Alkaline Phosphatase 88 U/L (38-126) 09/10/24 05:59
Most recent labs reviewed.
Wound/abscess/other Cult Final 09/11/24-9
Few Klebsiella oxytoca
Few Mixed skin alondra
Organism 1 Klebsiella oxytoca
1. Klebsiella oxytoca
M.I.C. RX
--------- ---
Amoxicillin/Potas. Clavulanate <=8/4 S
Ampicillin >16 R
Ampicillin/Sulbactam 8/4 S
Aztreonam <=4 S
Cefazolin <=2 S
Ertapenem <=0.5 S
Ciprofloxacin <=0.25 S
Gentamicin <=2 S
Meropenem <=1 S
Piperacillin/Tazobactam <=8 S
Tetracycline <=4 S
Tobramycin <=2 S
Trimethoprim/Sulfamethoxazole <=2/38 S
MRI: Image Reviewed and Report Reviewed ( superficial subcutaneous soft tissues lateral to the fifth metatarsophalangeal joint, crescentic thin fluid collection, which could represent seroma given recent surgery. This could also represent a small
superficial collection/abscess.)
Micro Results:
09/09/24 03:23 Wound Culture - Final
Foot - Left Klebsiella oxytoca
Gram Stain - Final
09/09/24 18:39 MRSA Screen - Final
Nose No Methicillin Resistant Staphylococcus aureus isolated.
09/09/24 03:23 Blood Culture - Preliminary
Blood/Venous No Growth in 48 hours- Final report to follow
09/09/24 03:37 Blood Culture - Preliminary
Blood/Venous No Growth in 48 hours- Final report to follow
--- NOTE | 2024-09-11 15:00 | PTCARENOTE ---
Reached back out to OR to tell them patient is in echo. OR nurse said she would contact echo and have transport take him from echo to or. IV abx tubed to OR.
--- NOTE | 2024-09-11 15:51 | W.PN.SURGUPD ---
Surgical Update
Surgical Update
64 yo M s/p L foot I&D
-10ccs of purulence expressed from left foot superficial abscess. No deep communication and no exposed bone
-F/u 1x culture
-Continue antibiotics per culture results and ID recommendations. Would recommend 10-14 days of continued antibiotics for residual skin and soft tissue coverage
-Heel WBAT to LLE
-Will need forefoot offloading (wedge) shoe
-Will perform dressing change POD#1
-Will need nursing dressing changes 3x weekly upon discharge
[2024-09-11 16:09] LABS: Glucose - Point of Care 93 mg/dl (70-99)
[2024-09-11] MEDS: UNASYN IV ×2 (16:28→20:23)
--- NOTE | 2024-09-11 16:40 | CM ---
Patient out of room to OR today. Patient for VN needs. Patient does not have PCP. CM will review options of Residency clinic. CM will continue to follow for discharge planning needs.
Plan; home with VN; needs PCP
[2024-09-11] MEDS: LOVENOX 40 MG SC (17:07)
--- NOTE | 2024-09-11 17:30 | PTCARENOTE ---
Called [facility] to give report, charge gang weigher relayed to me that bed hasn't been assigned yet to a new nurse. RN relayed to call back [facility] and ask for Mindy for report on this patient
--- NOTE | 2024-09-11 18:04 | PTCARENOTE ---
Pt arrived to [facility] from PACU s/p L food I&D. Pt AAOx3, L foot adelia wrap C/D/I. Pt states no pain at this time. Oriented to call christina and room, bed locked and in lowest position. Call christina within reach.
[2024-09-11 23:01] LABS: Glucose - Point of Care 132 mg/dl (70-99)
[2024-09-12] MEDS: THIAMINE INJECTION 200 MG IV ×2 (00:49→08:48)
[2024-09-12] MEDS: UNASYN IV ×3 (00:59→14:07)
[2024-09-12] MEDS: TYLENOL 650 MG PO (03:02)
[2024-09-12] MEDS: ATIVAN 1 MG PO (03:02)
[2024-09-12 05:37] LABS: % Basophils 0.8 % (0-2); % Immature Granulocytes 0.5 % (0-0.5); % Monocytes 11.4 % (1.7-9.3); % Neutrophils 65.3 % (42.2-75.2); Absolute Basophils 0.1 10^3/uL (0-0.2); Absolute Eosinophils 0.3 10^3/uL (0-0.7); Absolute Lymphocytes 1.6 10^3/uL (1.2-3.4); Absolute Neutrophils 5.4 10^3/uL (1.4-6.5); Hemoglobin 13.7 g/dL (13.0-18.0); Mean Corp Hgb Conc. 34.3 g/dL (33.0-37.0); Mean Corpuscular Hgb 31.2 pg (27.0-31.0); Mean Corpuscular Volume 91.1 fL (80.0-94.0); Mean Platelet Volume 8.5 fL (7.4-10.4); Nucleated Red Blood Cells % 0 % (-); Platelet Count 322 10^3/uL (130-400); Red Blood Cell Count 4.39 10^6/uL (4.70-6.10); Red Cell Dist. Width 11.9 % (11.5-14.5); White Blood Cell Count 8.3 10^3/uL (4.8-10.8)
[2024-09-12 05:52] LABS: ALT (SGPT) 13 U/L (0-50); AST (SGOT) 17 U/L (17-59); Albumin 3.4 g/dl (3.5-5.0); Alkaline Phosphatase 82 U/L (38-126); Blood Urea Nitrogen 12 mg/dl (9-20); Calcium 8.9 mg/dl (8.4-10.2); Carbon Dioxide 29 mmol/L (22-30); Chloride 99 mmol/L (98-107); Estimated Creatinine Clearance 124 ml/min; Glucose 150 mg/dl (70-99); Magnesium 2.2 mg/dl (1.6-2.3); Sodium 136 mmol/L (135-145); Total Bilirubin 0.5 mg/dl (0.2-1.3); eGFR > 60.00
[2024-09-12 06:57] LABS: Glucose - Point of Care 138 mg/dl (70-99)
[2024-09-12 07:00] VITALS: BP 162/95
--- NOTE | 2024-09-12 08:01 | W.PN.HOSP.TC ---
Addendum entered and electronically signed by Linsey Cazares MD 09/12/24 19:33:
I saw and evaluated the patient independently. I reviewed the resident�s note and agree with findings and plan as documented by Dr. Gill.
GENERAL: well developed, well nourished, male in no apparent distress
HEENT: NC/AT
HEART: regular rate and rhythm, +S1, +S2, CAMRON
LUNGS : clear to auscultation bilaterally
ABDOM: soft, nontender, nondistended, + bowel sounds
EXT: no cyanosis, clubbing, or edema--left foot post op with wrap in place
NEUROLOGIC: grossly intact
superficial foot abscess complicated by Diabetes with foreign body also concerning for cellulitis-- No recent hospitalizations, abx use. 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
screen neg--can stop vanco-- zosyn to augmentin at d/c--apprec podiatry/ID--MRI of foot small superficial abscess--s/p OR 09/11/24--cleared for d/c by ID and podiatry--wound care 3x/week
Type 2 DM - no on insulin at home--HGB A1c 7.2 --SSI coverage--start metformin at d/c
ETOH use disorder--endorses 3 beers a night, told RN that he drinks coke and amrgo but only 2 drinks/day.... but drinks regularly--no signs of DTs--cont MSAS--also positive tox screen for marijuana/meth/amphetamines--pt not concerned--told CM 09/09
that he doesn't have a problem--now will agree to [facility] follow up
DVT PPX - lovenox sq
Code status - full code
Original Note:
Today's Communication/Plan
-
Discharge today
Transition to Augmentin at discharge
Assessment / Plan
Assessment / Plan
64-year-old male, with past medical history of DM 2, restless leg syndrome, was seen in the ER for left foot pain and swelling since 2 days. Patient reports that he had stepped on broken glass pieces. He was afebrile at presentation, in
ER�WBC�[id number]. Left foot x-ray showed evidence of foreign body. In ER�foreign body was removed with drainage of pus thereafter. ID and podiatry consulted.
Impression
Cellulitis/abscess left foot
DM type II
Alcohol use disorder
Substance abuse disorder
Restless leg syndrome
Plan
Cellulitis/abscess left foot-status post surgical exploration�POD #1
-History of diabetes�not currently on home meds
Transitioned to Unasyn
-MRI left foot- No MR evidence for osteomyelitis.
Within the superficial subcutaneous soft tissues lateral to the fifth metatarsophalangeal joint, crescentic thin fluid collection, which could represent seroma given recent surgery. This could also represent a small superficial collection/abscess.
Intermediate T1-weighted signal plantar to the fifth metatarsal head and proximal phalanx, with no evidence for associated collection.
�Podiatry consulted�plan on exploration of the wound, abscess drainage.
I&D�10ccs of purulence expressed from left foot superficial abscess. No deep communication and no exposed bone
�Pain adequately controlled with Tylenol and tramadol as needed.
Will discharge him on Augmentin through 09/21/2024
WBAT to LLE
wedge shoe
DM type II
HbA1c 7.2
Patient not on home meds
Continue SSI
Continue dapagliflozin 5 mg once daily
Will add metformin 500 mg, twice daily at discharge
Alcohol use disorder
Patient reports that he drinks regularly
No evidence of withdrawal symptoms
Msas score-5, early a.m. today, received a dose of Ativan.
Continue folate
Continue thiamine
Substance abuse disorder
Urine toxicology�positive for marijuana, meth, amphetamines
Patient does not want to enroll into any therapy/program.
Restless leg syndrome
Continue pramipexole
DVT PPX - lovenox sc
Full code
Anticipated Discharge: Today
Subjective/Interval History
-
Date of Service: September 12, 2024
Patient feels okay, anticipated pain at the operated site, tolerable.
Objective Data
-
Labs:
Laboratory Results
09/12/24
04:33
WBC 8.3
Hgb 13.7
Hct 40.0
Plt Count 322
Sodium 136
Potassium 4.0
Chloride 99
Carbon Dioxide 29
BUN 12
Creatinine 0.5 L
Glucose 150 H
Calcium 8.9
Total Bilirubin 0.5
AST 17
ALT 13
Alkaline Phosphatase 82
Vital Signs:
Vital Signs
Temp Pulse Resp BP Pulse Ox
98.7 F 78 14 162/95 95
09/12/24 07:00 09/12/24 07:00 09/12/24 07:00 09/12/24 07:00 09/12/24 07:00
I&O
09/11/24 09/12/24 09/13/24
06:59 06:59 06:59
Intake Total 805 / 805 2004
Output Total 3675 / 3675 1000 / 1000
Balance -2870 / -2870 1005 / 1005
Review of Systems
-
All other systems: Reviewed and negative (As per history)
Physical Exam
-
General: Well Developed and Well Nourished
HEENT: Normocephalic and Atraumatic
Respiratory: Clear to Auscultation
Cardiac: Regular Rhythm and S1/S2
GI: Soft, Nontender, Nondistended and Normal Bowel Sounds
Musculoskeletal: Other (Left foot-in dressing-clear, dry, intact. Distal neurovasculature intact, patient is able to wiggle his toes, capillary refill normal.)
Skin: Warm and Dry
Neuro: Awake, Alert, Oriented and AO x 3
Psych: Calm
[2024-09-12] MEDS: NOVOLOG FLEXPEN-LOW RESISTANCE SC ×2 (08:39→12:34)
[2024-09-12] MEDS: FARXIGA 5 MG PO (08:48)
[2024-09-12] MEDS: MIRAPEX, GENERIC 1.5 MG PO (08:48)
[2024-09-12] MEDS: FOLVITE 1 MG PO (08:48)
--- NOTE | 2024-09-12 11:17 | W.PN.ID1 ---
Date of Service
Date of Service: September 12, 2024
Today's Communication
- transition to augmentin through 09/21
- follow up with podiatry
Assessment / Plan
Diabetic Foot Infection
DM2 with fair control
Polysubstance abuse
- wound culture in progress
- blood cultures x2 in progress
- not colonized with MRSA
- s/p I&D 09/11 - superficial
- transition to augmentin through 09/21
- follow up with podiatry
Chief Complaint
-: Other (diabetic foot infection)
Subjective / Review of Systems
afebrile
bp stable
had I&D 09/11: 10 ccs of puss from superficial abscess
Vital Signs / Physical Exam
Vital Signs
Vital Signs
Temp Pulse Resp BP Pulse Ox
98.7 F 78 14 162/95 95
09/12/24 07:00 09/12/24 07:00 09/12/24 07:00 09/12/24 07:00 09/12/24 07:00
Physical Exam
Constitutional: No Acute Distress and Chronically Ill
Cardiovascular: Regular Rate and S1/S2; Negative Murmur or Rub
Pulmonary: Clear and Symmetric; Negative Wheezes or Rales
Gastrointestinal: Soft, Non Tender, Non Distended and Normal Bowel Sounds
Skin: Warm and Dry; Negative Rash or Jaundice
Wound: Other (dressing clean, dry, intact)
Objective Data
Lab Data
Lab Results
09/12/24 04:33
09/12/24 04:33
ESR 15 mm/hour (0-20) 09/09/24 04:59
PT 14.1 Sec (11.4-14.6) 09/09/24 08:57
INR 1.05 09/09/24 08:57
APTT 30.4 Sec (23.4-35.0) 09/09/24 08:57
Estimated Creat Clear 124 ml/min 09/12/24 04:33
Total Bilirubin 0.5 mg/dl (0.2-1.3) 09/12/24 04:33
GGT 12 U/L (15-73) L 09/09/24 08:57
AST 17 U/L (17-59) 09/12/24 04:33
ALT 13 U/L (0-50) 09/12/24 04:33
Alkaline Phosphatase 82 U/L (38-126) 09/12/24 04:33
Most recent labs reviewed.
Micro Results:
09/09/24 03:37 Blood Culture - Preliminary
Blood/Venous No Growth in 72 hours- Final report to follow
09/09/24 03:23 Blood Culture - Preliminary
Blood/Venous No Growth in 72 hours- Final report to follow
09/11/24 15:41 Wound Culture - Pending
Foot - Left Gram Stain - Preliminary
09/11/24 15:41 Anaerobic Culture - Pending
Foot - Left
09/09/24 03:23 Wound Culture - Final
Foot - Left Klebsiella oxytoca
Gram Stain - Final
09/09/24 18:39 MRSA Screen - Final
Nose No Methicillin Resistant Staphylococcus aureus isolated.
Care Review
Plan reviewed with: Physician (Dr Sage johnson)
[2024-09-12 11:26] LABS: Glucose - Point of Care 146 mg/dl (70-99)
--- NOTE | 2024-09-12 12:33 | W.PN.SURGUPD ---
Surgical Update
Surgical Update
64 yo M POD#1 s/p L foot I&D
-Patient seen and evaluated at bedside, dressings changed, re-applied betadine DSD MADISON
-Left foot infection significantly improved, wound bed healthy and granular
-Continue abx per ID recs
-Needs forefoot offloading shoe and home nursing dressing changes 2-3x per week
-Home nursing instructions: Please apply betadine, DSD, ABD, and MADISON bandage to left foot
-Follow up with myself at [facility] 2 weeks follow discharge
--- NOTE | 2024-09-12 14:56 | W.DCSUMMARY ---
Addendum entered and electronically signed by Linsey Cazares MD 09/13/24 07:16:
Read, reviewed, and agree. See same day progress note for additional details. Time spent coordinating care, DC planning, review of DC plan of care with resident, transition of care, review of records in EMR, med rec, consults, notes, d/w
consultants, nursing, family, and CM = 40 minutes
Original Note:
Discharge Summary
Discharge Data
Date of Admission: 09/09/24
Date of Discharge: 09/12/24
Total time spent discharging patient (in min): 40
-
Pending Results: Yes (Wound culture)
Hospital Course
Discharging Physician : Dr. Linsey Cazares, Dr. Jluis Gill
Disposition : Home with visiting nurse
Principal Discharge diagnosis : Foot abscess, cellulitis
Chronic Discharge diagnosis : Diabetes mellitus type 2, alcohol use disorder, substance abuse disorder.
Hospital Course : 64 year old male with past medical history of DM2 presented with foot pain and swelling; reports that he stepped on glass pieces, and thinks that it got infected. No fevers or chills. Had noted a 'black dot' on the bottom of the
foot.
ED course� afebrile, BP�127/80 , he was satting 98% on room air. White count was 14,000, hemoglobin was normal, blood counts normal. Electrolytes BUN/creatinine were all within normal range. X-ray of the left foot showed evidence of foreign
body. He had an incision and drainage with extraction of the foreign body. There was purulent drainage afterwards. Podiatry and ID was consulted.
Blood cultures and wound cultures were sent before starting him on antibiotics�vancomycin and Zosyn. Podiatry planned on MRI of left foot which showed evidence of superficial abscess lateral to fifth metatarsophalangeal joint. Further management
with exploration of the wound in OR, incision and drainage of the superficial abscess. Cultures were taken and the results were still pending at discharge. Antibiotics were transitioned to Unasyn and then later to Augmentin at discharge for a
total course of 2 weeks through 09/21/2024 (including hospital stay). On his POD #1, dressings were changed, infection significantly improved, wound bed healthy and granular. patient also underwent echo (new onset heart murmur) which showed no
evidence of endocarditis.
Patient has a history of DM type II, but not on any home medications, his HbA1c was 7.2, was started on dapagliflozin, SSI, BG was under control throughout the hospital stay.
Patient also has a history of alcohol abuse and substance abuse disorder. He was started on MSAS protocol. Patient also agreed to go to [facility] after discharge, after talking to case management.
Patient is stable to be discharged home with visiting nurse for wound dressings 3 times a week, wedge shoe, weightbearing as tolerated. Was given instructions to follow-up with the primary care within a week and [facility] within 2
weeks.
In addition to dapagliflozin he was also started on metformin 500 mg twice daily and advised to follow-up with primary care for further management of his DM.
Important imaging findings : Foot x-ray�09/09/2024�On the oblique view, 2 mm radiodensity within the soft tissues projecting lateral to the fifth metatarsophalangeal joint, suspicious for a small radiopaque foreign body.
Soft tissue swelling, greatest involving the forefoot, and focally lateral to the fifth metatarsophalangeal joint.
No radiographic evidence for osteomyelitis.
Left foot MRI�09/10/2024�No MR evidence for osteomyelitis.
Within the superficial subcutaneous soft tissues lateral to the fifth metatarsophalangeal joint, crescentic thin fluid collection, which could represent seroma given recent surgery. This could also represent a small superficial collection/abscess.
Intermediate T1-weighted signal plantar to the fifth metatarsal head and proximal phalanx, with no evidence for associated collection.
Procedure findings : As per operative report ' An incision drainage was then made down to the level of the deep fascial tissue and muscle, which was debrided and all nonviable tissue was debrided. A large abscess was noted and cultured. Once
adequate incision and drainage of multiplanar area was explored, there was no further residual foreign body that was removed and the wound was flushed and hemostasis was achieved via electrocautery and packed with dry sterile dressings.'
Discharge Plan
-
Patient Disposition: Home with Home Care
Discharge Diagnosis/Procedures: Left foot abscess, diabetes mellitus, substance abuse
Condition: Fair
Diet: Diabetic, Carb Controlled
Additional Activity: Weightbearing as tolerated on the left foot.
Driving Restrictions: Not until seen by your Dr
Other Services: VN
Wound Care: Home nursing instructions: Please apply betadine, DSD, ABD, and MADISON bandage to left foot
Activity Restrictions/Additional Instructions:
Follow-up with primary care in 1 - 3 days.
Follow-up with podiatry in 2 weeks
Follow-up with [facility]
Instructions: Wound Care (DC)
Referrals:
NONE,* [Family Provider] - in two weeks
Norma Fletcher MD, Resident [Family Practice Resident Year2] -
Kristian Chowdhury MD [Active] -
Additional Discharge Medication Instructions: Weightbearing as tolerated
Use wedge shoe
Change dressing 3 times a week, visiting nurse.
Prescriptions:
New
polyethylene glycol 3350 17 gram Powder In Packet
17 g PO DAILYPRN PRN (Reason: constipation) Qty: 15 0RF
thiamine HCl (vitamin B1) 100 mg Tablet
100 mg PO BID Qty: 30 0RF
folic acid 1 mg Tablet
1 mg PO DAILY Qty: 30 0RF
dapagliflozin propanediol 5 mg Tablet
5 mg PO DAILY Qty: 30 0RF
amoxicillin-pot clavulanate 875-125 mg tablet
1 tab PO BID Qty: 19 0RF
metformin 500 mg tablet
500 mg PO BID Qty: 60 0RF
Continued
ibuprofen [Motrin IB] 200 MG capsule
400 mg PO Q6HPRN PRN (Reason: pain)
pramipexole 1.5 MG tablet
1.5 mg PO BID Qty: 0 0RF
Patient Comments:
09/10/23 prescription write on 08/10/24 only stated 1.5mg hs
Discharge Orders:
Discharge Patient (As Directed); Ordered 09/12/24
Ordered By: Jluis Gill
Discharge Date and Time
Discharge Date/Time: 09/12/24 19:35
Print Language: [id number]
[2024-09-12 15:00] VITALS: BP 154/87
--- NOTE | 2024-09-12 15:51 | VNURNOTE ---
Home Health Liaison met with patient at bedside to discuss [facility] nurse/therapy, visits, schedule and homebound status. Patient is agreeable and understands that visits at home will be 3 x per week to assess and teach medical management, wound care.
Liaison assisted patient with making appt with residency clinic. Appt made for 09/14 11:15. Patient is aware [facility] can admit him after seen by res clinic. Patient is aware that if Medicaid pending application is not approved, he will be financially
responsible for [facility] visits. Patient verbalized understanding. [facility] brochure provided with contact information. Residency appt written down on Residency brochure for pt. Patient is aware that [facility] will contact him for start of care after res
clinic. [facility] referral completed in Care Port.
--- NOTE | 2024-09-12 17:14 | CM ---
Patient seen at bedside with physicians. Patient for discharge home with [facility] to follow and [facility] to see patient prior to discharge. CM will continue to follow for discharge planning.
Plan; home with family, [facility] to follow and [facility] to assess.
[2024-09-12 17:49] LABS: Glucose - Point of Care 202 mg/dl (70-99)
[2024-09-12] MEDS: NOVOLOG FLEXPEN-LOW RESISTANCE 2 UNITS SC (18:29)
[2024-09-12] MEDS: LOVENOX 40 MG SC (18:30)
[2024-09-12 19:10] VITALS: BP 147/78
== END 2024-09-12 19:35 | disposition home health service (06) | DRG 605 ==
LOC: 2 SOUTH 08:13
PROVIDERS: Student in an Organized Health Care Education/Training Program; ADMITTING PHYSICIAN Internal Medicine; ATTENDING PHYSICIAN Internal Medicine; CONSULT PHYSICIAN Student in an Organized Health Care Education/Training Program; EMERGENCY PHYSICIAN Emergency Medicine
PROC: 0JCR3ZZ Extirpation of Matter from Left Foot Subcutaneous Tissue and Fascia, Percutaneous Approach (ICD-10-PCS; 2024-09-09)
PROC: 0J9R0ZZ Drainage of Left Foot Subcutaneous Tissue and Fascia, Open Approach (ICD-10-PCS; 2024-09-11)
DX: S90.852A Superficial foreign body, left foot, initial encounter (principal); L02.612 Cutaneous abscess of left foot; L03.116 Cellulitis of left lower limb; E11.40 Type 2 diabetes mellitus with diabetic neuropathy, unspecified; G25.81 Restless legs syndrome; K59.00 Constipation, unspecified; B96.1 Klebsiella pneumoniae [K. pneumoniae] as the cause of diseases classified elsewhere; W25.XXXA Contact with sharp glass, initial encounter; Z79.84 Long term (current) use of oral hypoglycemic drugs; Z87.891 Personal history of nicotine dependence
CPT/HCPCS: 73630; 73718; 80048; 80053; 80306; 80307; 81003; 81015; 82010; 82077; 82962; 82977; 83036; 83735; 84100; 85025; 85027; 85610; 85652; 85730; 87040; 87070; 87075; 87077; 87147; 87186; 87205; 93306; 96365; 96366; 96367; 96375; 99285; 99406

== ENCOUNTER 2024-10-10 15:35 | Emergency (ER) | payer OTHER, SELFPAY ==
[2024-10-10 15:37] VITALS: BP 127/67
[2024-10-10 16:01] LABS: % Basophils 0.8 % (0-2); % Eosinophils 3.6 % (0-6); % Immature Granulocytes 0.3 % (0-0.5); % Lymphocytes 21.3 % (20.5-51.1); % Monocytes 10.1 % (1.7-9.3); % Neutrophils 63.9 % (42.2-75.2); Absolute Basophils 0.1 10^3/uL (0-0.2); Absolute Eosinophils 0.3 10^3/uL (0-0.7); Absolute Lymphocytes 1.9 10^3/uL (1.2-3.4); Absolute Monocytes 0.9 10^3/uL (0.1-0.6); Absolute Neutrophils 5.6 10^3/uL (1.4-6.5); Hematocrit 40.3 % (39.0-52.0); Hemoglobin 13.9 g/dL (13.0-18.0); Mean Corp Hgb Conc. 34.5 g/dL (33.0-37.0); Mean Corpuscular Hgb 31.4 pg (27.0-31.0); Mean Corpuscular Volume 91.2 fL (80.0-94.0); Mean Platelet Volume 8.5 fL (7.4-10.4); Nucleated Red Blood Cells % 0 % (-); Platelet Count 241 10^3/uL (130-400); Red Blood Cell Count 4.42 10^6/uL (4.70-6.10); Red Cell Dist. Width 12.2 % (11.5-14.5); White Blood Cell Count 8.7 10^3/uL (4.8-10.8)
[2024-10-10 16:16] LABS: ALT (SGPT) 17 U/L (0-50); AST (SGOT) 22 U/L (17-59); Albumin 4.1 g/dl (3.5-5.0); Alkaline Phosphatase 88 U/L (38-126); Blood Urea Nitrogen 19 mg/dl (9-20); Calcium 8.3 mg/dl (8.4-10.2); Carbon Dioxide 23 mmol/L (22-30); Chloride 104 mmol/L (98-107); Glucose 150 mg/dl (70-99); Potassium 4.4 mmol/L (3.5-5.1); Sodium 137 mmol/L (135-145); Total Bilirubin 0.8 mg/dl (0.2-1.3); Total Protein 6.4 g/dl (6.3-8.2); eGFR > 60.00
[2024-10-10 18:05] VITALS: BP 127/76
--- NOTE | 2024-10-10 19:33 | ED.GENMED ---
History of Present Illness
General
Chief Complaint: Throat Problem
Time Seen by Provider: 10/10/24 19:31
History of Present Illness
History of Present Illness:
TIME OF INITIAL ENCOUNTER: 7:35 PM
HPI: Patient has sensation of lump in the throat over the last couple of days. PCP wanted to have a CT performed. The patient reports no night sweats, no fevers, and no weight loss. His area of concern primarily is located in the right
submandibular region. The symptoms have been ongoing over the last 2 days
EXAM
GENERAL: Well appearing in no distress
HEENT: There is a palpable approximately 3 cm cystic lesion in the right submandibular region which is mildly tender, no palpable salivary duct gland stone, I also could not palpate any cervical, supraclavicular lymphadenopathy.
CARDIOVASCULAR: No murmurs, normal heart rate, regular rhythm, No chest wall tenderness
PULMONARY: No respiratory distress, breath sounds are clear and equal
ABDOMEN: Soft with no peritoneal signs, no tenderness
NEUROLOGIC: Excellent strength all extremities, no coordination deficits
PSYCHIATRIC: Appropriate mental status, normal insight and judgement
EXTREMITIES: Nontender, no edema, moves all extremities equally
SKIN: No rash, no lesions
NUMBER AND COMPLEXITY OF PROBLEMS ADDRESSED AT THE ENCOUNTER
� Chronic conditions affecting care: History of substance abuse, diabetes
� Acute Exacerbation and/or Progression of Chronic Illness: This is an acute problem
� Differential Diagnosis includes: Lymphadenopathy, lymphadenitis, lymphoma, cervical abscess
AMOUNT AND/OR COMPLEXITY OF DATA TO BE REVIEWED AND ANALYZED
� I performed an independent evaluation of and my interpretation is:
EKG:
CT: CT scan of the neck shows a 2.4 cm cystic-appearing lesion that could be a lymph node however there is also extensive bilateral cervical, supraclavicular, and axillary lymphadenopathy
X-rays:
Laboratory Studies: CBC unremarkable, glucose 150 otherwise chemistries unremarkable
Other:
� Review of other/old records: I reviewed records, the patient was admitted here last month related to diabetic foot infection
� Clinical information was obtained by an independent historian: None needed
� Prescriptions/Medications Considered but not given:
� Further testing considered but not performed:
RISK OF COMPLICATIONS AND/OR MORBIDITY OR MORTALITY OF PATIENT MANAGEMENT
� Social determinants of health affecting care: Lives at home
� Discussion with other providers: Given the abnormal CT findings, I discussed with Dr. Godinez�he can see in the office likely tomorrow for FNA as the lesion is palpable
� Escalation of care including admission/observation vs risk of discharge considered: Gave IV Decadron, IV Toradol, and IV clindamycin.
ANY OTHER UPDATES:
8:50 PM: The patient was given IV meds. He is eager to go home. I arrange follow-up with Dr. Goidnez. I informed the patient of the abnormality seen on CT including the extensive lymphadenopathy which is not palpable on exam. I have also given
information for heme-onc. Will continue oral steroids and antibiotics as an outpatient. States that he has tolerated steroids despite being a diabetic in the past.
Past History
Past History
ED Past Medical History: NIDDM and Other (Restless leg syndrome)
Social History
Tobacco: Former smoker
Drug: Marijuana and Other (Methamphetamine)
Personal:
Phy Exam
Physical Exam
Physical Exam:
See HPI
Course
Orders/Labs/Results
Orders:
Orders
10/10/24 15:46
CT Neck With Iv Contrast Urgent
Comment:
Reason For Exam: neck abscess
10/10/24 15:54
Complete Blood Count/With Diff Urgent
Comprehensive Metabolic Panel Urgent
10/10/24 19:52
Dexamethasone Sod Phosphate [Decadron] 10 mg IV NOW STA
Ketorolac [Toradol] 15 mg IV NOW STA
10/10/24 20:08
Clindamycin 600 mg/50 ml [Cleocin] 600 mg in 50 ml IV NOW
10/10/24 20:13
Pramipexole [Mirapex, Generic] 1.5 mg PO NOW STA
Abnormal Lab Results
10/10/24
15:54
RBC 4.42 L 10^6/uL
(4.70-6.10)
MCH 31.4 H pg
(27.0-31.0)
Absolute Monos (auto) 0.9 H 10^3/uL
(0.1-0.6)
Monocytes % 10.1 H %
(1.7-9.3)
Creatinine 0.5 L mg/dL
(0.7-1.3)
Glucose 150 H mg/dl
(70-99)
Calcium 8.3 L mg/dl
(8.4-10.2)
10/10/24 15:54
10/10/24 15:54
Vital Signs
Initial and Last Documented VS:
Initial Vital Signs
Temp Pulse Resp BP Pulse Ox
36.6 C 82 16 127/67 100
10/10/24 15:37 10/10/24 15:37 10/10/24 15:37 10/10/24 15:37 10/10/24 15:37
Last Documented Vital Signs
Temp Pulse Resp BP Pulse Ox
36.6 C 76 16 140/71 98
10/10/24 15:37 10/10/24 18:05 10/10/24 18:05 10/10/24 20:00 10/10/24 20:00
*Critical Care Note
Total Time (30-74mins, 75-104mins- exclusive of procedures): Not Applicable
ED Attending Note
-
Portions of this chart may have been created with voice recognition software.� Occasional wrong word or��sound alike� substitutions may have occurred due to the inherent limitations of voice recognition software.
Discharge Plan
Departure
Patient Disposition: Home (Routine Discharge)
Date of Disposition: 10/10/24
Time of Disposition: 20:37
Patient with high blood pressure during this ER visit?: Yes
Discharge Problem:
Lymphadenopathy
Instructions: Swollen lymph nodes in adults
Prescriptions:
New
clindamycin HCl 300 mg capsule
300 mg PO TID Qty: 21 0RF
prednisone 50 mg tablet
50 mg PO DAILY Qty: 4 0RF
No Action
ibuprofen [Motrin IB] 200 MG capsule
400 mg PO Q6HPRN PRN (Reason: pain)
thiamine HCl (vitamin B1) 100 mg Tablet
100 mg PO BID Qty: 30 0RF
folic acid 1 mg Tablet
1 mg PO DAILY Qty: 30 0RF
pramipexole 1.5 MG tablet
1.5 mg PO BID Qty: 0 0RF
Patient Comments:
09/10/23 prescription write on 08/10/24 only stated 1.5mg hs
metformin 500 mg tablet
500 mg PO BID Qty: 60 0RF
Referrals:
Pilar Caceres MD [Active] - Follow up in 1 week
Elijah Godinez MD [Active] - Tomorrow
NONE,* [Family Provider] -
Activity Restrictions/Additional Instructions:
Your white blood cell count is normal. I notified Dr. Godinez of the abnormal CT finding. Please call their office tomorrow and he may be able to do a 'fine-needle aspirate biopsy' of the affected area. Of note, you also have swollen lymph nodes
elsewhere such as above the collarbone and in the armpits and elsewhere in the neck. I recommend that you first speak to Dr. Godinez but I have also given the contact information for a heme-onc doctor as well as somebody else to follow-up with.
CAT SCAN REPORT:
'There is a 2.4 x 2.0 x 1.2 cm lobulated, mildly hypodense focus within the right submandibular space without surrounding inflammatory changes or peripheral enhancement. This may represent a more cystic-appearing lymph node.
There is extensive bilateral cervical, supraclavicular and axillary lymphadenopathy suspicious for hematologic malignancy, less likely reactive lymphadenopathy.'
Interventions
Interventions:
*Risk Screen - Suicide Last Done: 10/10/24 15:37
*General Assessment Last Done: 10/10/24 15:37
*Neglect/Abuse Screening Last Done: 10/10/24 15:37
ED- Fall Risk Assessment Last Done: 10/10/24 19:47
*ED COVID-19 Vaccine History Last Done: 10/10/24 15:37
ED-EENT Assessment Last Done: 10/10/24 19:47
ED- Pulmonary Assessment Last Done: 10/10/24 19:47
Discharge Date and Time
Print Language: LAO
[2024-10-10 19:50] VITALS: BP 122/88
[2024-10-10 20:00] VITALS: BP 140/71
[2024-10-10] MEDS: DECADRON 10 MG IV (20:06)
[2024-10-10] MEDS: TORADOL 15 MG IV (20:06)
[2024-10-10] MEDS: MIRAPEX, GENERIC 1.5 MG PO (20:25)
[2024-10-10] MEDS: CLEOCIN 50 IV (20:25)
== END 2024-10-10 21:06 | disposition home or self-care (01) ==
LOC: EMR 15:35
PROVIDERS: Emergency Medicine; EMERGENCY PHYSICIAN Emergency Medicine
DX: R59.0 Localized enlarged lymph nodes (principal); Z87.891 Personal history of nicotine dependence
CPT/HCPCS: 99284; 96365; 96375 ×2; 70491; 80053; 85025; Q9967

== ENCOUNTER → 2025-04-12 12:19 | Outpatient (REF) | payer OTHER, SELFPAY | LOC: HWRAD 12:19 | PROVIDERS: ATTENDING PHYSICIAN Student in an Organized Health Care Education/Training Program | DX: M79.661 Pain in right lower leg (principal); M79.662 Pain in left lower leg | CPT/HCPCS: 72110 ==